=== PATIENT | male | born 1965 | race Caucasian/White ===

== ENCOUNTER → 2016-05-28 14:51 | Outpatient (CLI) | payer BC | END | disposition home or self-care (01) | LOC: D.US 14:51 | DX: R79.89 Other specified abnormal findings of blood chemistry (principal) ==

== ENCOUNTER → 2016-11-15 14:40 | Outpatient (CLI) | payer BC | END | disposition home or self-care (01) | LOC: D.CT 14:40 | DX: R63.4 Abnormal weight loss (principal) ==